=== PATIENT | male | born 1970 | race Caucasian/White ===

== ENCOUNTER 2019-01-24 14:52 | Observation (INO) | payer MEDICARE ==
[~2019-01-24 14:52] MED LIST: REGADENOSON INJ 0.4 MG/5 ML DISP.SYRIN IV ONE
[2019-01-24] MEDS ORDERED: NITROGLYCERIN 0.4 MG/TAB 25 TAB/BOTTLE SL PRN ×2 (15:52→20:28)
[2019-01-24] MEDS ORDERED: ASPIRIN 81 MG TABLET, CHEWABLE PO ONE (15:52)
--- NOTE | 2019-01-24 15:58 | ER Document Report ---
ED Medical Screen (RME) - General Chief Complaint: Chest Pain Stated Complaint: SWEATING Time Seen by Provider: 01/24/19 15:44 Notes: Patient is a 48-year-old male who presents the emergency department with a chief complaint of chest pain. His pain started this morning. He states that he normally has on symptoms when he has had a myocardial infarction in the past. This time he is having right elbow pain and cold sweating chills. He took nitroglycerin this morning and had no relief of his pain. He also took his normal 81 mg aspirin this morning. He has history of an NSTEMI and diabetes. He has had stents placed in [place] last year. Denies tobacco use, but admits to marijuana use. Exam: S1, S2. Clear lung sounds throughout. I have greeted and performed a rapid initial assessment of this patient. A comprehensive ED assessment and evaluation of the patient, analysis of test results and completion of medical decision making process will be conducted by an additional ED providers. - Related Data Allergies/Adverse Reactions: No Known Allergies Allergy (Unverified 01/24/19 15:42) Physical Exam - Vital signs Vitals: Temp Pulse BP Pulse Ox 98.2 F 82 118/70 96 01/24/19 15:05 01/24/19 15:05 01/24/19 15:05 01/24/19 15:05 Course - Vital Signs Vital signs: Temp Pulse Resp BP Pulse Ox 98.2 F 82 118/70 96 01/24/19 15:05 01/24/19 15:05 01/24/19 15:05 01/24/19 15:05
[2019-01-24 16:33] LABS: ABSOLUTE EOSINOPHILS # (AUTO) 0.3 10^3/uL (0.0-0.6); ABSOLUTE LYMPHOCYTES (AUTO) 3.7 10^3/uL (0.5-4.7); ABSOLUTE MONOCYTES (AUTO) 0.6 10^3/uL (0.1-1.4); ABSOLUTE NEUT (AUTO) 4.6 10^3/uL (1.7-8.2); BASOPHILS % (AUTO) 0.2 % (0-2); EOSINOPHILS % (AUTO) 2.9 % (0-6); HEMATOCRIT 45.8 % (37.9-51.0); HEMOGLOBIN 16.4 g/dL (13.5-17.0); LYMPHOCYTES % (AUTO) 40.2 % (13-45); MEAN CORPUSCULAR HEMOGLOBIN 28.8 pg (27.0-33.4); MEAN CORPUSCULAR HGB CONC 35.9 g/dL (32.0-36.0); MEAN CORPUSCULAR VOLUME 80 fl (80-97); MONOCYTES % (AUTO) 6.1 % (3-13); PLATELET COUNT 209 10^3/uL (150-450); RED BLOOD COUNT 5.72 10^6/uL (4.35-5.55); SEGMENTED NEUTROPHILS % (AUTO) 50.6 % (42-78); TOTAL CELLS COUNTED % (AUTO) 100 %; WHITE BLOOD COUNT 9.2 10^3/uL (4.0-10.5)
--- NOTE | 2019-01-24 16:38 | RADIOLOGY REPORT (SQ) ---
EXAM DESCRIPTION: CHEST SINGLE VIEW COMPLETED DATE/TIME: 01/24/2019 4:25 pm REASON FOR STUDY: chest pain COMPARISON: None. EXAM PARAMETERS: NUMBER OF VIEWS: One view. TECHNIQUE: Single frontal radiographic view of the chest acquired. RADIATION DOSE: NA LIMITATIONS: None. FINDINGS: LUNGS AND PLEURA: No consolidation, pleural effusion or pneumothorax. MEDIASTINUM AND HILAR STRUCTURES: No mediastinal or hilar contour abnormality. HEART AND VASCULAR STRUCTURES: The cardiac silhouette and pulmonary vasculature are within normal solorzano its. BONES: No acute findings. HARDWARE: ACDF hardware in the cervical spine. OTHER: No other finding. IMPRESSION: No acute cardiopulmonary process. TECHNICAL DOCUMENTATION: JOB ID: [id number] [employer]- All Rights Reserved Reading location - IP/workstation name: TRUE
[2019-01-24 16:55] LABS: ALBUMIN 4.2 g/dL (3.5-5.0); ALKALINE PHOSPHATASE 80 U/L (38-126); ANION GAP 12 (5-19); ASPARTATE AMINO TRANSFERASE 39 U/L (17-59); BILIRUBIN,DIRECT 0.3 mg/dL (0.0-0.4); BILIRUBIN,TOTAL 0.6 mg/dL (0.2-1.3); BLOOD UREA NITROGEN 15 mg/dL (7-20); CALCIUM 9.6 mg/dL (8.4-10.2); CARBON DIOXIDE 25 mmol/L (22-30); CHLORIDE 101 mmol/L (98-107); CREATINE KINASE 290 U/L (55-170); GLUCOSE 144 mg/dL (75-110); POTASSIUM 4.3 mmol/L (3.6-5.0); TOTAL PROTEIN 7.3 g/dL (6.3-8.2)
[2019-01-24 17:11] LABS: TROPONIN I < 0.012 ng/mL
--- NOTE | 2019-01-24 18:19 | EKG REPORT ---
SEVERITY:- NORMAL ECG - SINUS RHYTHM ST ELEV, PROBABLE NORMAL EARLY REPOL PATTERN : Confirmed by: Javi Cottrell MD 24-Jan-2019 18:17:58
[2019-01-24] MEDS ORDERED: ACETAMINOPHEN 325 MG TABLET PO ONE (18:38)
[2019-01-24] MEDS ORDERED: ACETAMINOPHEN 325 MG TABLET PO PRN (20:28)
--- NOTE | 2019-01-24 20:34 | RADIOLOGY REPORT (SQ) ---
CT HEAD WITHOUT IV CONTRAST EXAM DATE: 01/24/2019 6:38 PM CDT HISTORY: Headache, on Plavix. COMPARISON: None. TECHNIQUE: CT scan of the brain without IV contrast. This exam was performed according to our departmental dose-optimization program, which includes automated exposure control, adjustment of the mA and/or kV according to patient size and/or use of iterative reconstruction technique. FINDINGS: The ventricles, cisterns, and sulci are age-appropriate. No evidence of acute infarction, intracranial hemorrhage, extra-axial fluid collection, or midline shift. No air-fluid levels are seen in the paranasal sinuses to suggest acute sinusitis. No depressed skull fracture. IMPRESSION: No acute intracranial findings.
[2019-01-24] MEDS: ASPIRIN 81 MG TABLET, ENT COATED PO SCH (21:06)
--- NOTE | 2019-01-24 21:21 | ER Document Report ---
Entered by SYEDA JADE SCRIBE 01/24/192011 Acting as scribe for:MAKENZIE FERNANDO DO ED Cardiac - General Chief Complaint: Arm Pain Stated Complaint: SWEATING Time Seen by Provider: 01/24/19 15:44 Mode of Arrival: Ambulatory Information source: Patient Notes: 48-year-old male on plavix presents to the emergency department today with complaints of right elbow pain. Patient states he has had an NSTEMI in the past and his right elbow hurt when he had the NSTEMI. Patient also states he has some chest tightness. Patient states he developed a headache after taking nitroglycerin. Patient states he has been "really tired the last few days". Patient is a poor historian so history is limited. Patient denies any new physical activity, chills, fevers, dysuria, or abdominal pain. TRAVEL OUTSIDE OF THE [place] IN LAST 30 DAYS: No - Related Data Allergies/Adverse Reactions: No Known Allergies Allergy (Unverified 01/24/19 15:42) Past Medical History - General Information source: Patient - Social History Smoking Status: Never Smoker Cigarette use (# per day): No Chew tobacco use (# tins/day): No Frequency of alcohol use: None Drug Abuse: None Lives with: Family Family History: Reviewed & Not Pertinent Patient has suicidal ideation: No Patient has homicidal ideation: No - Past Medical History Cardiac Medical History: Reports: Hx Coronary Artery Disease, Hx Heart Attack, Hx Hypercholesterolemia Endocrine Medical History: Reports: Hx Diabetes Mellitus Type 2 Past Surgical History: Reports: Hx Cardiac Catheterization - 3 stents, Hx Orthopedic Surgery - neck, left hand Review of Systems - Review of Systems Constitutional: denies: Chills, Fever EENT: No symptoms reported Cardiovascular: See HPI, Chest pain Respiratory: No symptoms reported Gastrointestinal: denies: Abdominal pain Genitourinary: denies: Dysuria Male Genitourinary: No symptoms reported Musculoskeletal: See HPI, Back pain, Joint pain - Right elbow Skin: No symptoms reported Hematologic/Lymphatic: No symptoms reported Neurological/Psychological: See HPI, Headaches -: Yes All other systems reviewed and negative Physical Exam - Vital signs Vitals: Temp Pulse BP Pulse Ox 98.2 F 82 118/70 96 01/24/19 15:05 01/24/19 15:05 01/24/19 15:05 01/24/19 15:05 Interpretation: Normal - General General appearance: Appears well, Alert - HEENT Head: Normocephalic, Atraumatic Eyes: Normal Pupils: PERRL - Respiratory Respiratory status: No respiratory distress Chest status: Nontender Breath sounds: Normal Chest palpation: Normal - Cardiovascular Rhythm: Regular Heart sounds: Normal auscultation Murmur: No - Abdominal Inspection: Normal Distension: No distension Bowel sounds: Normal Tenderness: Nontender Organomegaly: No organomegaly - Back Back: Normal, Nontender - Extremities General upper extremity: Normal inspection, Nontender, Normal color, Normal ROM, Normal temperature General lower extremity: Normal inspection, Nontender, Normal color, Normal ROM, Normal temperature, Normal weight bearing. No: Teresa's sign - Neurological Neuro grossly intact: Yes Cognition: Normal Orientation: AAOx4 Rosa Coma Scale Eye Opening: Spontaneous Rosa Coma Scale Verbal: Oriented [place] Coma Scale Motor: Obeys Commands Rosa Coma Scale Total: 15 Speech: Normal Motor strength normal: LUE, RUE, LLE, RLE Sensory: Normal - Psychological Associated symptoms: Normal affect, Normal mood - Skin Skin Temperature: Warm Skin Moisture: Dry Skin Color: Normal Course - Re-evaluation Re-evalutation: 01/24/19 21:19 Patient is a 48-year-old male with a history of coronary artery disease and stent last year in [place] who comes in complaining of chest and right arm pain. This is very similar to symptoms in the past when he had his WA. 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 He does not know when his last stress test is. Last stent was 2017 and he also had one in 2009. Initial EKG with no acute findings. No chest pain at this time. 2 troponins are negative. Discussed at length with patient and family. Patient will be held for observation due to his concerning symptoms and history of WA. Discussed w ith the hospitalist service, Dr. Campos, and accepted for admission to observation. Stable at the time of admission to telemetry. - Vital Signs Vital signs: Temp Pulse Resp BP Pulse Ox 98.2 F 82 14 123/79 98 01/24/19 15:05 01/24/19 15:05 01/24/19 19:01 01/24/19 19:01 01/24/19 19:01 - Laboratory Result Diagrams: 01/24/19 16:14 01/24/19 16:14 Laboratory results interpreted by me: 01/24/19 01/24/19 16:14 16:14 RBC 5.72 H Glucose 144 H Creatine Kinase 290 H - Diagnostic Test Radiology reviewed: Reports reviewed - EKG Interpretation by Me EKG shows normal: Sinus rhythm Rate: Normal Rhythm: NSR Discharge - Discharge Clinical Impression: Chest pain Qualifiers: Chest pain type: unspecified Qualified Code(s): R07.9 - Chest pain, unspecified Condition: Stable Disposition: ADMITTED OBSERVATION Admitting Provider: Andres (Hospitalist) Unit Admitted: Telemetry I personally performed the services described in the documentation, reviewed and edited the documentation which was dictated to the scribe in my presence, and it accurately records my words and actions.
[2019-01-24] MEDS: FAMOTIDINE 20 MG TABLET PO SCH (21:52)
[2019-01-24] MEDS ORDERED: ATORVASTATIN CALCIUM 40 MG TABLET PO SCH (22:00)
--- NOTE | 2019-01-25 04:43 | PDOC H&P ---
History of Present Illness Admission Date/PCP: 01/24/19 20:28 Patient complains of: Chest pain History of Present Illness: MARCI OBRIEN is a 48 year old male with a past medical history of poorly controlled diabetes, hypertension, dyslipidemia and coronary artery disease with stents. He presents 8 hours after the onset of chest pain occurring at rest with 3 out of 5 intensity, that was aching in nature radiating to his right shoulder associated with nausea without vomiting and diaphoresis. Denies shortness of breath or palpitations. He is unable to identify exacerbating factors but was alleviated by nitroglycerin. He states this pain is similar to his previous ID. In the emergency room he has an unremarkable work-up but he is referred to the hospitalist for admission. He is currently pain-free Past Medical History Cardiac Medical History: Reports: Coronary Artery Disease, Myocardial Infarction, Hyperlipidema Endocrine Medical History: Reports: Diabetes Mellitus Type 2 Psychiatric Medical History: Denies: Depression Past Surgical History Past Surgical History: Reports: Cardiac Catheterization - 3 stents, Orthopedic Surgery - neck, left hand Social History Information Source: Patient Lives with: Family Smoking Status: Never Smoker Electronic Cigarette use?: No Frequency of Alcohol Use: Occasional Hx Recreational Drug Use: No Drugs: None Hx Prescription Drug Abuse: No - Advance Directive Resuscitation Status: Full Code Family History Family History: Hypertension Parental Family History Reviewed: Yes Children Family History Reviewed: Yes Sibling(s) Family History Reviewed.: Yes Medication/Allergy Home Medications: Aspirin [Aspirin 81 mg Chewable Tablet] 81 mg PO DAILY 01/24/19 Atorvastatin Calcium [Lipitor 40 mg Tablet] 40 mg PO QHS 01/24/19 Carvedilol [Coreg 3.125 mg Tablet] 3.125 mg PO Q12 01/24/19 Clopidogrel Bisulfate [Clopidogrel] 75 mg PO DAILY 01/24/19 Fenofibrate 145 mg PO DAILY 01/24/19 Lisinopril [Prinivil] 5 mg PO DAILY 01/24/19 Metformin HCl [Glucophage 500 mg Tablet] 500 mg PO BID 01/24/19 Nitroglycerin [Nitrostat 0.4 mg (1/150 Gr) Tabs 25/Bottle] 1 tab SL Q5MP PRN 01/24/19 Allergies/Adverse Reactions: No Known Allergies Allergy (Unverified 01/24/19 15:42) Physical Exam Vital Signs: Temp Pulse Resp BP Pulse Ox 98.0 F 74 18 111/68 97 01/24/19 23:46 01/25/19 02:00 01/24/19 23:46 01/24/19 23:46 01/24/19 23:46 Intake & Output 01/23/19 01/24/19 01/25/19 11:59 11:59 11:59 Intake Total 444 Balance 444 Weight 105.7 kg General appearance: PRESENT: no acute distress, well-developed, well-nourished Head exam: PRESENT: atraumatic, normocephalic Eye exam: PRESENT: conjunctiva pink, EOMI, PERRLA. ABSENT: scleral icterus Ear exam: PRESENT: normal external ear exam Mouth exam: PRESENT: moist, tongue midline Neck exam: ABSENT: carotid bruit, JVD, lymphadenopathy, thyromegaly Respiratory exam: PRESENT: clear to auscultation kary. ABSENT: rales, rhonchi, wheezes Cardiovascular exam: PRESENT: RRR. ABSENT: diastolic murmur, rubs, systolic murmur Pulses: PRESENT: normal dorsalis pedis pul Vascular exam: PRESENT: normal capillary refill GI/Abdominal exam: PRESENT: normal bowel sounds, soft. ABSENT: distended, guarding, mass, organolmegaly, rebound, tenderness Rectal exam: PRESENT: deferred Extremities exam: PRESENT: full ROM. ABSENT: calf tenderness, clubbing, pedal edema Neurological exam: PRESENT: alert, awake, oriented to person, oriented to place, oriented to time, oriented to situation, CN II-XII grossly intact. ABSENT: motor sensory deficit Psychiatric exam: PRESENT: appropriate affect, normal mood. ABSENT: homicidal ideation, suicidal ideation Skin exam: PRESENT: dry, intact, warm. ABSENT: cyanosis, rash Results Laboratory Results: 01/24/19 16:14 01/24/19 16:14 01/24/19 01/24/19 16:14 16:14 WBC 9.2 RBC 5.72 H Hgb 16.4 Hct 45.8 MCV 80 MCH 28.8 MCHC 35.9 RDW 14.0 Plt Count 209 Seg Neutrophils % 50.6 Sodium 137.9 Potassium 4.3 Chloride 101 Carbon Dioxide 25 Anion Gap 12 BUN 15 Creatinine 0.98 Est GFR ( Amer) > 60 Glucose 144 H Calcium 9.6 Magnesium 1.8 Total Bilirubin 0.6 AST 39 Alkaline Phosphatase 80 Total Protein 7.3 Albumin 4.2 01/24/19 01/24/19 01/24/19 16:14 16:14 19:16 Creatine Kinase 290 H CK-MB (CK-2) 1.90 Troponin I < 0.012 < 0.012 01/25/19 01:20 Creatine Kinase CK-MB (CK-2) Troponin I < 0.012 Impressions: Chest X-Ray 01/24/19 15:52 IMPRESSION: No acute cardiopulmonary process. Head CT 01/24/19 18:38 IMPRESSION: No acute intracranial findings. Assessment and Plan - Diagnosis (1) Chest pain Qualifiers: Chest pain type: unspecified Qualified Code(s): R07.9 - Chest pain, unspecified Is this a current diagnosis for this admission?: Yes Plan: Atypical chest pain though the patient's pain is atypical there are multiple risk factors for coronary artery disease and subsequently will observe and evaluation of acute coronary syndrome versus coronary artery disease with anginal equivalents. Cardiac monitoring blood pressure Q6 hours ,TSH, lipid profile, serial cardiac enzymes and cardiac stress test (2) Diabetes Is this a current diagnosis for this admission?: Yes Plan: Unclear compliance, follow-up A1c, Humalog QIC PRN (3) Hypertension Is this a current diagnosis for this admission?: Yes Plan: ROSETTA inhibitor (4) Dyslipidemia Is this a current diagnosis for this admission?: Yes Plan: Statin ordered, follow-up lipid profile (5) Anxiety Is this a current diagnosis for this admission?: Yes Plan: Anxious affect, consider screen if #1 rules out - Time Time Spent with patient: 25-34 minutes
[2019-01-25 09:15] LABS: CHOLESTEROL 162.43 mg/dL (0-200)
[2019-01-25 09:26] LABS: DIRECT LDL < 30 mg/dL (<100); TRIGLYCERIDES 882 mg/dL (<150)
[2019-01-25 09:58] VITALS: BP 142/75
[2019-01-25] MEDS ORDERED: CLOPIDOGREL BISULFATE 300 MG TABLET PO SCH (10:00)
[2019-01-25] MEDS ORDERED: (PENDING PHARMACY ID) (Ranitidine Hcl [Ranitidine Hcl] 150 MG) PO SCH (10:00)
[2019-01-25] MEDS: ASPIRIN 81 MG TABLET, ENT COATED PO SCH (10:52)
[2019-01-25] MEDS: FAMOTIDINE 20 MG TABLET PO SCH (10:52)
[2019-01-25] MEDS ORDERED: INFLUENZA QUAD (6MOS+) 2019-20 VAC 0.5 ML SYR IM ONE (13:30)
--- NOTE | 2019-01-25 15:32 | PDOC DISCHARGE SUMMARY ---
Impression - Admit/DC Date/PCP Admission Date/Primary Care Provider: 01/24/19 20:28 Discharge Date: 01/25/19 - Additional Information Resuscitation Status: Full Code Discharge Diet: Cardiac, Diabetic Discharge Activity: Activity As Tolerated Referrals: [facility] [Other] - 02/02/19 10:00 am Home Medications: Aspirin [Aspirin 81 mg Chewable Tablet] 81 mg PO DAILY 01/24/19 Atorvastatin Calcium [Lipitor 40 mg Tablet] 40 mg PO QHS 01/24/19 Carvedilol [Coreg 3.125 mg Tablet] 3.125 mg PO Q12 01/24/19 Clopidogrel Bisulfate [Clopidogrel] 75 mg PO DAILY 01/24/19 Fenofibrate 145 mg PO DAILY 01/24/19 Lisinopril [Prinivil] 5 mg PO DAILY 01/24/19 Metformin HCl [Glucophage 500 mg Tablet] 500 mg PO BID 01/24/19 Nitroglycerin [Nitrostat 0.4 mg (1/150 Gr) Tabs 25/Bottle] 1 tab SL Q5MP PRN 01/24/19 History of Present Illiness History of Present Illness: MARCI OBRIEN is a 48 year old male with a past medical history of poorly controlled diabetes, hypertension, dyslipidemia and coronary artery disease with stents. He presents 8 hours after the onset of chest pain occurring at rest with 3 out of 5 intensity, that was aching in nature radiating to his right shoulder associated with nausea without vomiting and diaphoresis. Denies shortness of breath or palpitations. He is unable to identify exacerbating factors but was alleviated by nitroglycerin. He states this pain is similar to his previous [place]. In the emergency room he has an unremarkable work-up but he is referred to the hospitalist for admission. He is currently pain-free Hospital Course Hospital Course: He had negative enzymes and was pain-free and so he had a stress test which was negative. He will continue all of his home medications. He has a follow-up with radioactivity technician in about 2 weeks. His labs and examination were reassuring he was discharged in good condition. Physical Exam Vital Signs: Temp Pulse Resp BP Pulse Ox 97.9 F 64 17 142/75 H 96 01/25/19 13:14 01/25/19 13:14 01/25/19 13:14 01/25/19 07:40 01/25/19 13:14 Intake & Output 01/24/19 01/25/19 01/26/19 06:59 06:59 06:59 Intake Total 444 Balance 444 Weight 105.7 kg General appearance: PRESENT: no acute distress, cooperative, disheveled, obese Respiratory exam: PRESENT: clear to auscultation kary, symmetrical, unlabored. ABSENT: accessory muscle use, chest wall tenderness, crackles, prolonged expiratory phas, rhonchi, tachypnea, wheezes Cardiovascular exam: PRESENT: RRR, +S1, +S2 Pulses: PRESENT: normal carotid pulses Vascular exam: PRESENT: normal capillary refill GI/Abdominal exam: PRESENT: normal bowel sounds, soft. ABSENT: distended, guarding, rebound, tenderness Extremities exam: ABSENT: clubbing, pedal edema Musculoskeletal exam: PRESENT: normal inspection. ABSENT: deformity Neurological exam: PRESENT: alert, awake, oriented to person, oriented to place, oriented to time, oriented to situation Psychiatric exam: PRESENT: appropriate affect, normal mood Skin exam: PRESENT: dry, warm Results Laboratory Results: WBC 9.2 10^3/uL (4.0-10.5) 01/24/19 16:14 RBC 5.72 10^6/uL (4.35-5.55) H 01/24/19 16:14 Hgb 16.4 g/dL (13.5-17.0) 01/24/19 16:14 Hct 45.8 % (37.9-51.0) 01/24/19 16:14 MCV 80 fl (80-97) 01/24/19 16:14 MCH 28.8 pg (27.0-33.4) 01/24/19 16:14 MCHC 35.9 g/dL (32.0-36.0) 01/24/19 16:14 RDW 14.0 % (11.5-14.0) 01/24/19 16:14 Plt Count 209 10^3/uL (150-450) 01/24/19 16:14 Lymph % (Auto) 40.2 % (13-45) 01/24/19 16:14 Meagher % (Auto) 6.1 % (3-13) 01/24/19 16:14 Eos % (Auto) 2.9 % (0-6) 01/24/19 16:14 Baso % (Auto) 0.2 % (0-2) 01/24/19 16:14 Absolute Neuts (auto) 4.6 10^3/uL (1.7-8.2) 01/24/19 16:14 Absolute Lymphs (auto) 3.7 10^3/uL (0.5-4.7) 01/24/19 16:14 Absolute Monos (auto) 0.6 10^3/uL (0.1-1.4) 01/24/19 16:14 Absolute Eos (auto) 0.3 10^3/uL (0.0-0.6) 01/24/19 16:14 Absolute Basos (auto) 0.0 10^3/uL (0.0-0.2) 01/24/19 16:14 Seg Neutrophils % 50.6 % (42-78) 01/24/19 16:14 Sodium 137.9 mmol/L (137-145) 01/24/19 16:14 Potassium 4.3 mmol/L (3.6-5.0) 01/24/19 16:14 Chloride 101 mmol/L (98-107) 01/24/19 16:14 Carbon Dioxide 25 mmol/L (22-30) 01/24/19 16:14 Anion Gap 12 (5-19) 01/24/19 16:14 BUN 15 mg/dL (7-20) 01/24/19 16:14 Creatinine 0.98 mg/dL (0.52-1.25) 01/24/19 16:14 Est GFR ( Amer) > 60 (>60) 01/24/19 16:14 Est GFR (MDRD) Non-Af > 60 (>60) 01/24/19 16:14 Glucose 144 mg/dL (75-110) H 01/24/19 16:14 POC Glucose 150 mg/dL (70-110) H 01/25/19 12:06 Calcium 9.6 mg/dL (8.4-10.2) 01/24/19 16:14 Magnesium 1.8 mg/dL (1.6-2.3) 01/24/19 16:14 Total Bilirubin 0.6 mg/dL (0.2-1.3) 01/24/19 16:14 Direct Bilirubin 0.3 mg/dL (0.0-0.4) 01/24/19 16:14 Neonat Total Bilirubin Not Reportable 01/24/19 16:14 Neonat Direct Bilirubin Not Reportable 01/24/19 16:14 Neonat Indirect Bili Not Reportable 01/24/19 16:14 AST 39 U/L (17-59) 01/24/19 16:14 ALT 62 U/L (<50) 01/24/19 16:14 Alkaline Phosphatase 80 U/L (38-126) 01/24/19 16:14 Creatine Kinase 290 U/L (55-170) H 01/24/19 16:14 CK-MB (CK-2) 1.90 ng/mL (<4.55) 01/24/19 16:14 Troponin I < 0.012 ng/mL 01/25/19 08:27 Total Protein 7.3 g/dL (6.3-8.2) 01/24/19 16:14 Albumin 4.2 g/dL (3.5-5.0) 01/24/19 16:14 Triglycerides 882 mg/dL (<150) H 01/25/19 08:27 Cholesterol 162.43 mg/dL (0-200) 01/25/19 08:27 LDL Cholesterol Direct < 30 mg/dL (<100) 01/25/19 08:27 VLDL Cholesterol 176.0 mg/dL (10-31) H 01/25/19 08:27 VLDL Cholesterol, Calc UNABLE TO CALCULATE 01/25/19 08:27 HDL Cholesterol 18 mg/dL (>40) L 01/25/19 08:27 Serum Alcohol < 10 mg/dL (NONE DETECTED) 01/24/19 16:14 01/24/19 01/24/19 01/25/19 16:14 19:16 01:20 CK-MB (CK-2) 1.90 Troponin I < 0.012 < 0.012 < 0.012 01/25/19 08:27 CK-MB (CK-2) Troponin I < 0.012 Impressions: Chest X-Ray 01/24/19 15:52 IMPRESSION: No acute cardiopulmonary process. Head CT 01/24/19 18:38 IMPRESSION: No acute intracranial findings. Plan Time Spent: Greater than 30 Minutes Stroke Is this a Stroke Patient?: No Acute Heart Failure - Is this a Heart Failure Patient?: No
[2019-01-26] MEDS ORDERED: INFLUENZA QUAD (6MOS+) 2019-20 VAC 0.5 ML SYR IM ONE (08:00)
--- NOTE | 2019-01-27 00:24 | DRAGON STRESS TEST REPORT ---
Intravenous Lexiscan Cardiolite stress test using single photon emmision computerized tomography. Date of procedure: 01/25/2019. Ordering Provider: Dr. Campos Patient's status In Patient. Indication: Chest pain. Coronary risk factors: Age, diabetes mellitus, hypertension, and dyslipidemia. Resting EKG: Sinus Rhythm. Within Normal Limits. Stress EKG: No changes of ischemia. Patient had no chest pain or discomfort, and there were no arrhythmias seen. Reason for termination: Protocol. Conclusions: Normal EKG and hemodynamic response to IV Lexiscan. Nuclear data: At rest the patient was given 14.62 millicuries of technetium 99m sestamibi injected intravenously. As per protocol rest non gated SPECT images were obtained. Subsequently the patient was given intravenous Lexiscan at a dose of 0.4 mg in 5 mL intravenously, followed by flush with normal saline. Subsequently the stress dose of 45.7 millicuries of technetium 99m sestamibi was injected intravenously. As per protocol stress gated images were obtained. Nuclear interpretation: Review of images showed that all segments of the myocardium had normal perfusion at rest, and normal perfusion post stress with IV Lexiscan. All segments of the myocardium had normal motion, contraction, and thickening by gated study. T. I D. ratio was normal at 1.12. There is no transient ischemic dilatation of the left ventricle. Computer read rest, and stress left ventricular ejection fraction were 52 %, and 55 %, respectively. Visually both the stress and rest ejection fractions were normal, and greater than 55%. Conclusion: 1. There is no scintigraphic evidence of Lexiscan induced myocardial ischemia. 2. There is no scintigraphic evidence of myocardial infarction/scar. Recommendations: Aggressive risk factor modification, and treating the underlying co- morbidities. [facility]
== END 2019-01-25 13:50 | disposition home or self-care (01) ==
LOC: ER 14:52 → EH 20:28 → 5 22:31
PROVIDERS: ADMIT Internal Medicine; ATTEND Internal Medicine
PROC: 4A02XM4 Measurement of Cardiac Total Activity, External Approach (ICD-10-PCS; principal; 2019-01-25)
PROC: 3E033HZ Introduction of Radioactive Substance into Peripheral Vein, Percutaneous Approach (ICD-10-PCS; 2019-01-25)
PROC: 3E02340 Introduction of Influenza Vaccine into Muscle, Percutaneous Approach (ICD-10-PCS; 2019-01-25)
DX: R07.9 Chest pain, unspecified (principal); I10 Essential (primary) hypertension; E11.9 Type 2 diabetes mellitus without complications; E78.5 Hyperlipidemia, unspecified; I25.10 Atherosclerotic heart disease of native coronary artery without angina pectoris; I25.2 Old myocardial infarction; R53.83 Other fatigue; M25.521 Pain in right elbow; Z79.84 Long term (current) use of oral hypoglycemic drugs; Z79.82 Long term (current) use of aspirin; Z95.5 Presence of coronary angioplasty implant and graft; Z23 Encounter for immunization
CPT/HCPCS: 93005; 99285; 36415 ×2; 82553; 82962; 80307; 82550; 83735; 85025; 80053; 84484 ×2; 80061; 93017; 71045; 78452; 70450; 90686; 93010; 93015; G0378 ×3; A9500; J2785; A9270 ×3; Q9969